=== PATIENT | male | born 1960 | race Two or more races ===

== ENCOUNTER 2019-01-18 07:14 | Emergency (ER) | payer MEDICAID ==
[~2019-01-18] VITALS: Ht 170.2 cm; Wt 70.3 kg
[2019-01-18 07:23] VITALS: BP 157/82; Ht 170.2 cm; Wt 70.3 kg
== END 2019-01-18 08:00 | disposition home or self-care (01) ==
LOC: ED 07:14
DX: M70.22 Olecranon bursitis, left elbow (principal); F17.210 Nicotine dependence, cigarettes, uncomplicated; Z71.6 Tobacco abuse counseling; Y93.89 Activity, other specified
CPT/HCPCS: 99406

== ENCOUNTER 2019-01-19 20:48 | Emergency (ER) | payer MEDICAID ==
[~2019-01-19] VITALS: Ht 167.6 cm; Wt 70.5 kg
[2019-01-19 20:49] VITALS: Ht 167.6 cm; Wt 70.5 kg
[2019-01-20 01:28] VITALS: BP 154/70
== END 2019-01-20 01:28 | disposition home or self-care (01) ==
LOC: ED 20:48
DX: M70.22 Olecranon bursitis, left elbow (principal); Z98.890 Other specified postprocedural states; Y93.89 Activity, other specified
CPT/HCPCS: J2001

== ENCOUNTER 2019-01-20 10:11 | Emergency (ER) | payer MEDICAID ==
[~2019-01-20] VITALS: Ht 167.6 cm; Wt 69.9 kg
[2019-01-20 10:20] VITALS: Ht 167.6 cm; Wt 69.9 kg
[2019-01-20 11:51] LABS: BASOPHIL % 0.9 % (0-2); PLATELET COUNT 298 x10^3mcL (130-400); RED CELL DISTRIBUTION WIDTH 12.5 % (11.5-14.5)
[2019-01-20 11:52] LABS: CARBON DIOXIDE 29.9 mmol/L (21-32); CHLORIDE SERUM 97 mmol/L (98-107); CREATININE SERUM 0.8 mg/dL (0.7-1.3); GFR1 > 60 mL/min; GLUCOSE SERUM 348 mg/dL (74-106); POTASSIUM SERUM 4.8 mmol/L (3.5-5.1); SODIUM SERUM 136 mmol/L (136-145)
[2019-01-20 11:57] LABS: ALBUMIN 3.5 g/dL (3.4-5.0); ALKALINE PHOSPHATASE 87 U/L (46-116); ALT/SGPT 22 U/L (16-63); AST/SGOT 11 U/L (15-37); BILIRUBIN TOTAL 0.4 mg/dL (0.20-1.00); TOTAL PROTEIN, SERUM 7.7 g/dL (6.4-8.2)
[2019-01-20 13:26] VITALS: BP 188/88
== END 2019-01-20 13:26 | disposition home or self-care (01) ==
LOC: ED 10:11
PROVIDERS: Emergency Medicine
DX: E11.9 Type 2 diabetes mellitus without complications (principal); M71.9 Bursopathy, unspecified
CPT/HCPCS: 36415; 82962; J7030